=== PATIENT | male | born 1935 | race Caucasian/White ===

== ENCOUNTER 2024-03-08 09:25 | Inpatient (IN) ==
[2024-03-08 10:08] LABS: Basophils # (Auto) 0.02 K/mcL (0.00-0.30); Basophils % (Auto) 0.2 % (0.0-2.0); Eosinophils # (Auto) 0.13 K/mcL (0.00-0.70); Eosinophils % (Auto) 1.2 % (0.0-7.0); Hematocrit 46.3 % (40.1-51.0); Hemoglobin 15.2 g/dL (13.7-17.5); Lymphocytes # (Auto) 1.28 K/mcL (1.50-4.80); Lymphocytes % (Auto) 11.4 % (15.5-49.0); Mean Cell Volume 90.1 fL (80.0-100.0); Mean Corpuscular HGB Conc 32.8 g/dL (31.0-36.0); Monocytes # (Auto) 0.94 K/mcL (0.10-0.90); Monocytes % (Auto) 8.4 % (1.0-12.0); Neutrophils % (Auto) 78.3 % (38.0-78.0); Platelet Count 165 K/mcL (140-440); RBC 5.14 M/mcL (4.63-6.08); Red Cell Distribution Width 13.5 % (11.5-14.5); WBC 11.2 K/mcL (4.5-11.0)
[2024-03-08] MEDS: 0.9 % SODIUM CHLORIDE 500 ML IV ONE (10:18)
[2024-03-08 10:31] LABS: ALT/SGPT 10 U/L (<40); AST/SGOT 21 U/L (<40); Albumin 3.8 gm/dL (3.2-5.2); Albumin/Globulin Ratio 1.3 (1.0-2.3); Alkaline Phosphatase 59 U/L (39-117); Bilirubin,Total 0.6 mg/dL (0.1-1.0); Blood Urea Nitrogen 33 mg/dL (8-23); Calcium 8.9 mg/dL (8.6-10.4); Carbon Dioxide 19 mmol/L (22-30); Chloride 99 mmol/L (96-108); Globulin 2.9 gm/dL (2.2-3.7); Glomerular Filtration Rate 12; Glucose 132 mg/dL (70-105); Potassium 3.3 mmol/L (3.3-5.1); Sodium 138 mmol/L (133-145)
[2024-03-08 10:57] LABS: Appearance,Urine CLOUDY (Clear); Bilirubin,Urine Negative (Negative); Color,Urine AMBER; Glucose,Urine (UA) Negative (Negative); Ketones,Urine Negative (Negative); Leukocyte Esterase,Urine Negative /uL (Negative); Nitrate,Urine Negative (Negative); Protein,Urine 100 mg/dL (Negative); Specific Gravity,Urine 1.015 (1.000-1.035); Urine RBC > 182 /hpf (0-1); Urine Squamous Epithelial Cell 0 /hpf (0-4); Urine WBC 0 /hpf (0-4); Urobilinogen,Urine Negative
[2024-03-08 11:20] LABS: INR 1.3 (0.9-1.1); Prothrombin Time 17.3 sec (11.9-14.5)
[2024-03-08] MEDS ORDERED: ONDANSETRON 4 MG/2 ML VIAL IV PRN (15:55)
[2024-03-08] MEDS ORDERED: IPRATROPIUM/ALBUTEROL 3 ML AMPUL.NEB NEB PRN (15:55)
[2024-03-08] MEDS: 0.9 % SODIUM CHLORIDE 10 ML SYRINGE IV SCH (17:28)
[2024-03-08] MEDS: 0.9 % SODIUM CHLORIDE 1,000 ML IV SCH (17:28)
[2024-03-08] MEDS: TAMSULOSIN 0.4 MG CAPSULE PO SCH (20:23)
[2024-03-08] MEDS: SENNOSIDES 1 TABLET PO SCH (20:23)
[2024-03-08] MEDS: DOCUSATE SODIUM 100 MG CAPSULE PO SCH (20:23)
[2024-03-09 06:40] LABS: Basophils # (Auto) 0.03 K/mcL (0.00-0.30); Basophils % (Auto) 0.4 % (0.0-2.0); Eosinophils # (Auto) 0.15 K/mcL (0.00-0.70); Eosinophils % (Auto) 1.9 % (0.0-7.0); Hematocrit 39.5 % (40.1-51.0); Hemoglobin 12.9 g/dL (13.7-17.5); Lymphocytes # (Auto) 1.34 K/mcL (1.50-4.80); Lymphocytes % (Auto) 17.4 % (15.5-49.0); Mean Cell Volume 90.8 fL (80.0-100.0); Mean Corpuscular HGB Conc 32.7 g/dL (31.0-36.0); Mean Platelet Volume 10.3 fL (8.8-12.5); Monocytes # (Auto) 0.86 K/mcL (0.10-0.90); Monocytes % (Auto) 11.1 % (1.0-12.0); Neutrophils % (Auto) 68.8 % (38.0-78.0); Platelet Count 143 K/mcL (140-440); RBC 4.35 M/mcL (4.63-6.08); Red Cell Distribution Width 13.2 % (11.5-14.5); WBC 7.7 K/mcL (4.5-11.0)
[2024-03-09 07:02] LABS: Blood Urea Nitrogen 16 mg/dL (8-23); Carbon Dioxide 21 mmol/L (22-30); Chloride 105 mmol/L (96-108); Glomerular Filtration Rate 60; Glucose 90 mg/dL (70-105); Potassium 2.9 mmol/L (3.3-5.1); Sodium 141 mmol/L (133-145)
[2024-03-09] MEDS: morphine 4 MG/ML VIAL IV PRN (08:26)
[2024-03-09] MEDS: NITROGLYCERIN 0.4 MG TAB.SUBL SL PRN (08:45)
[2024-03-09] MEDS: POTASSIUM CHLORIDE 10 MEQ/100 ML BAG IV SCH ×2 (10:53→14:54)
[2024-03-09] MEDS: METOPROLOL TARTRATE 25 MG TABLET PO SCH (13:29)
[2024-03-09] MEDS: 0.9 % SODIUM CHLORIDE 1,000 ML IV SCH (14:06)
[2024-03-09] MEDS: ASPIRIN 325 MG ENTERIC COATED TABLET PO ONE (14:08)
[2024-03-09 14:24] LABS: HDL Cholesterol 31 mg/dL (>40); LDL Cholesterol,Calculated 94 mg/dL (<100); Non-HDL Cholesterol 112 mg/dL (<130); Triglycerides 91 mg/dL (<150)
[2024-03-09] MEDS: hydrOXYzine 25 MG TABLET PO PRN (15:30)
[2024-03-09] MEDS ORDERED: HALOPERIDOL 1 MG TABLET PO SCH (16:00)
[2024-03-09] MEDS: HALOPERIDOL 5 MG TABLET PO SCH (16:09)
[2024-03-09] MEDS: traZODone HCL 50 MG TABLET PO PRN (20:10)
[2024-03-09] MEDS: OLANZapine 5 MG TABLET PO PRN (20:10)
[2024-03-09] MEDS: ATORVASTATIN 40 MG TABLET PO SCH (20:11)
[2024-03-10 08:28] LABS: ALT/SGPT 7 U/L (<40); AST/SGOT 14 U/L (<40); Albumin/Globulin Ratio 1.6 (1.0-2.3); Alkaline Phosphatase 45 U/L (39-117); Bilirubin,Direct 0.4 mg/dL (<0.3); Bilirubin,Total 0.7 mg/dL (0.1-1.0); Blood Urea Nitrogen 11 mg/dL (8-23); Carbon Dioxide 22 mmol/L (22-30); Chloride 108 mmol/L (96-108); Globulin 1.9 gm/dL (2.2-3.7); Glomerular Filtration Rate 85; Glucose 109 mg/dL (70-105); Lactate Dehydrogenase 166 U/L (135-225); Phosphorous 1.9 mg/dL (2.5-4.5); Potassium 3.2 mmol/L (3.3-5.1); Sodium 138 mmol/L (133-145); Triglycerides 100 mg/dL (<150); Uric Acid 3.9 mg/dL (2.5-8.0)
[2024-03-10] MEDS: NEUTRA PHOS 1 PACKET PO SCH (09:49)
[2024-03-10] MEDS: ASPIRIN 81 MG TAB.CHEW PO SCH (09:50)
[2024-03-10] MEDS: PHOSPHORUS 250 MG TABLET PO SCH (09:50)
[2024-03-10] MEDS: POTASSIUM CHLORIDE 20 MEQ TABLET PO ONE (09:50)
[2024-03-10] MEDS: ACETAMINOPHEN 325 MG TABLET PO PRN (14:47)
[2024-03-11 06:51] LABS: ALT/SGPT 9 U/L (<40); AST/SGOT 17 U/L (<40); Albumin 2.7 gm/dL (3.2-5.2); Albumin/Globulin Ratio 1.1 (1.0-2.3); Alkaline Phosphatase 48 U/L (39-117); Bilirubin,Direct 0.2 mg/dL (<0.3); Bilirubin,Total 0.5 mg/dL (0.1-1.0); Blood Urea Nitrogen 16 mg/dL (8-23); Calcium 8.2 mg/dL (8.6-10.4); Carbon Dioxide 24 mmol/L (22-30); Chloride 105 mmol/L (96-108); Globulin 2.5 gm/dL (2.2-3.7); Glomerular Filtration Rate 80; Glucose 139 mg/dL (70-105); Lactate Dehydrogenase 207 U/L (135-225); Phosphorous 2.3 mg/dL (2.5-4.5); Potassium 3.6 mmol/L (3.3-5.1); Sodium 140 mmol/L (133-145); Triglycerides 81 mg/dL (<150); Uric Acid 3.8 mg/dL (2.5-8.0)
[2024-03-11] MEDS: NEUTRA PHOS 1 PACKET PO SCH (08:37)
[2024-03-11] MEDS: METOPROLOL SUCCINATE 50 MG TAB.XL.24H PO SCH (08:38)
[2024-03-11] MEDS ORDERED: traMADol 50 MG TABLET PO PRN (09:48)
[2024-03-11] MEDS: TAMSULOSIN 0.4 MG CAPSULE PO SCH (20:17)
[2024-03-11] MEDS: SIMVASTATIN 20 MG TABLET PO SCH (20:18)
[2024-03-11] MEDS: oxyCODONE IR 5 MG TABLET PO PRN (20:18)
[2024-03-12] MEDS: LISINOPRIL 20 MG TABLET PO SCH (09:41)
[2024-03-12] MEDS: BISOPROLOL 5 MG TABLET PO SCH (09:42)
== END 2024-03-14 10:55 | DRG 695 ==
LOC: ED 09:25 → MEDSUR 14:57
PROVIDERS: ADMIT Internal Medicine; ATTEND Internal Medicine

== ENCOUNTER 2024-04-10 10:12 | Inpatient (IN) ==
[2024-04-10] MEDS: LIDOCAINE 2% URO-JET 10 ML JEL.PF.APP UR ONE (10:55)
[2024-04-10 11:14] LABS: Basophils # (Auto) 0.03 K/mcL (0.00-0.30); Basophils % (Auto) 0.2 % (0.0-2.0); Eosinophils % (Auto) 1.6 % (0.0-7.0); Hematocrit 38.3 % (40.1-51.0); Hemoglobin 12.6 g/dL (13.7-17.5); Lymphocytes # (Auto) 1.05 K/mcL (1.50-4.80); Lymphocytes % (Auto) 8.3 % (15.5-49.0); Mean Cell Volume 89.9 fL (80.0-100.0); Mean Corpuscular HGB Conc 32.9 g/dL (31.0-36.0); Mean Platelet Volume 9.8 fL (8.8-12.5); Monocytes # (Auto) 1.22 K/mcL (0.10-0.90); Monocytes % (Auto) 9.7 % (1.0-12.0); Platelet Count 222 K/mcL (140-440); RBC 4.26 M/mcL (4.63-6.08); WBC 12.6 K/mcL (4.5-11.0)
[2024-04-10 11:52] LABS: Appearance,Urine Cloudy (Clear); Bacteria,Urine Mod /hpf (0); Bilirubin,Urine Negative (Negative); Color,Urine Yellow; Glucose,Urine (UA) Negative (Negative); Ketones,Urine Negative (Negative); Leukocyte Esterase,Urine Large /uL (Negative); Nitrate,Urine Positive (Negative); PH,Urine 8.5 (5.0-9.0); Protein,Urine 100 mg/dL (Negative); Urine Blood Moderate ery/mcL (Negative); Urine RBC 182 /hpf (0-3); Urine Squamous Epithelial Cell 0 /hpf (0-4); Urine WBC 182 /hpf (0-4); Urobilinogen,Urine Normal
[2024-04-10] MEDS: 0.9 % SODIUM CHLORIDE 1,000 ML IV ONE (11:56)
[2024-04-10] MEDS: cefTRIAXone 2 GM in DEXTROSE 5% IN WATER 50 ML IV ONE (12:07)
[2024-04-10 13:13] LABS: ALT/SGPT 23 U/L (<40); AST/SGOT 19 U/L (<40); Albumin 3.2 gm/dL (3.2-5.2); Albumin/Globulin Ratio 1.1 (1.0-2.3); Alkaline Phosphatase 73 U/L (39-117); Bilirubin,Total 0.5 mg/dL (0.1-1.0); Blood Urea Nitrogen 28 mg/dL (8-23); Calcium 8.7 mg/dL (8.6-10.4); Carbon Dioxide 21 mmol/L (22-30); Chloride 97 mmol/L (96-108); Globulin 2.9 gm/dL (2.2-3.7); Glomerular Filtration Rate 60; Glucose 209 mg/dL (70-105); Potassium 4.2 mmol/L (3.3-5.1); Sodium 131 mmol/L (133-145)
[2024-04-10] MEDS ORDERED: SENNOSIDES 1 TABLET PO PRN (15:56)
[2024-04-10] MEDS ORDERED: POTASSIUM CHLORIDE 20 MEQ TABLET PO PRN ×2 (15:56)
[2024-04-10] MEDS ORDERED: METOCLOPRAMIDE 10 MG/2 ML VIAL IV PRN (15:56)
[2024-04-10] MEDS ORDERED: MAGNESIUM SULFATE 2 GM/50 ML BAG IV PRN (15:56)
[2024-04-10] MEDS ORDERED: POTASSIUM CHLORIDE 40 MEQ in DEXTROSE 5% IN WATER 500 ML IV PRN (15:56)
[2024-04-10] MEDS ORDERED: IPRATROPIUM/ALBUTEROL 3 ML AMPUL.NEB NEB PRN (15:56)
[2024-04-10] MEDS ORDERED: POLYETHYLENE GLYCOL 3350 17 GM PACKET PO PRN (15:56)
[2024-04-10] MEDS ORDERED: ACETAMINOPHEN 325 MG TABLET PO PRN (15:56)
[2024-04-10] MEDS ORDERED: ONDANSETRON 4 MG/2 ML VIAL IV PRN (15:56)
[2024-04-10] MEDS ORDERED: NITROGLYCERIN 0.4 MG TAB.SUBL SL PRN (16:17)
[2024-04-10 16:32] LABS: Phosphorous 2.4 mg/dL (2.5-4.5)
[2024-04-10 16:50] LABS: Estimated Average Glucose(eAG) 140 mg/dL; Hemoglobin A1C 6.5 % Hgb (4.0-6.0)
[2024-04-10] MEDS: 0.9 % SODIUM CHLORIDE 10 ML SYRINGE IV SCH (20:06)
[2024-04-10] MEDS: traMADol 50 MG TABLET PO PRN (20:06)
[2024-04-10] MEDS: ATORVASTATIN 40 MG TABLET PO SCH (20:06)
[2024-04-10] MEDS: DOCUSATE SODIUM 100 MG CAPSULE PO SCH (20:06)
[2024-04-10] MEDS: TAMSULOSIN 0.4 MG CAPSULE PO SCH (20:06)
[2024-04-11 06:08] LABS: Hematocrit 39.9 % (40.1-51.0); Mean Cell Volume 90.3 fL (80.0-100.0); Mean Corpuscular HGB Conc 32.6 g/dL (31.0-36.0); Mean Platelet Volume 9.5 fL (8.8-12.5); Platelet Count 195 K/mcL (140-440); RBC 4.42 M/mcL (4.63-6.08); Red Cell Distribution Width 13.9 % (11.5-14.5); WBC 7.3 K/mcL (4.5-11.0)
[2024-04-11 06:40] LABS: ALT/SGPT 20 U/L (<40); AST/SGOT 17 U/L (<40); Albumin 3.2 gm/dL (3.2-5.2); Albumin/Globulin Ratio 1.1 (1.0-2.3); Alkaline Phosphatase 72 U/L (39-117); Bilirubin,Total 0.5 mg/dL (0.1-1.0); Blood Urea Nitrogen 20 mg/dL (8-23); Calcium 8.7 mg/dL (8.6-10.4); Carbon Dioxide 26 mmol/L (22-30); Chloride 100 mmol/L (96-108); Glomerular Filtration Rate 80; Glucose 120 mg/dL (70-105); Potassium 3.8 mmol/L (3.3-5.1); Sodium 137 mmol/L (133-145)
[2024-04-11 06:57] LABS: Eosinophils % (Manual) 7 % (0-7); Lymphocytes % 24 % (15-49); Monocytes % (Manual) 8 % (1-12); Platelet Estimate NORMAL (Normal); RBC Morphology NORMAL (Normal); Reactive Lymphocytes 2 % (0-2); Segmented Neutrophils % 59 % (38-78)
[2024-04-11] MEDS: cefTRIAXone 1 GM VIAL IV SCH (08:20)
[2024-04-11] MEDS: ASPIRIN 81 MG TAB.CHEW PO SCH (08:20)
[2024-04-11] MEDS: ENOXAPARIN 40 MG/0.4 ML SYRINGE SQ SCH (08:21)
[2024-04-12] MEDS: BISOPROLOL 5 MG TABLET PO SCH (08:26)
== END 2024-04-13 11:03 | DRG 872 ==
LOC: ED 10:12 → MEDSUR 15:46
PROVIDERS: ADMIT Internal Medicine; ATTEND Internal Medicine